=== PATIENT | female | born 1970 | race Caucasian/White ===

== ENCOUNTER 2022-05-11 11:51 | Outpatient (CLI) | payer OTHER | END 2022-05-11 11:52 | disposition home or self-care (01) | LOC: CSHMAMMO 11:51 | PROVIDERS: ATTEND Family Medicine | DX: Z12.31 Encounter for screening mammogram for malignant neoplasm of breast (principal) | CPT/HCPCS: 77063; 77067 ==

== ENCOUNTER 2022-05-11 12:28 | Outpatient (CLI) | payer OTHER ==
[2022-05-11] MEDS ORDERED: Gadobenate Dimeglumine 529 MG/1 ML (20ML VIAL) ONE (14:10)
== END 2022-05-11 12:29 | disposition home or self-care (01) ==
LOC: CSHMRI 12:28
PROVIDERS: ATTEND Family Medicine
DX: G62.9 Polyneuropathy, unspecified (principal); M50.122 Cervical disc disorder at C5-C6 level with radiculopathy; M50.323 Other cervical disc degeneration at C6-C7 level; J34.89 Other specified disorders of nose and nasal sinuses
CPT/HCPCS: 70553; 72156; A9577

== ENCOUNTER 2022-06-15 13:50 | Outpatient (CLI) | payer OTHER | END 2022-06-15 13:51 | disposition home or self-care (01) | LOC: CSHMRI 13:50 | PROVIDERS: ATTEND Neurological Surgery | DX: R20.2 Paresthesia of skin (principal); M48.061 Spinal stenosis, lumbar region without neurogenic claudication; M47.814 Spondylosis without myelopathy or radiculopathy, thoracic region; M51.24 Other intervertebral disc displacement, thoracic region | CPT/HCPCS: 72146; 72148 ==

== ENCOUNTER 2023-05-19 12:36 | Outpatient (CLI) | payer OTHER | END 2023-05-19 12:37 | disposition home or self-care (01) | LOC: CSHMAMMO 12:36 | PROVIDERS: ATTEND Family Medicine | DX: N60.11 Diffuse cystic mastopathy of right breast (principal); N64.89 Other specified disorders of breast | CPT/HCPCS: G0279 ==

== ENCOUNTER 2024-04-19 12:41 | Outpatient (CLI) | payer OTHER ==
[2024-04-19] MEDS ORDERED: Magnevist 469MG/ML 20 ML VIAL ONE ×2 (15:11)
== END 2024-04-19 12:42 | disposition home or self-care (01) ==
LOC: CSHRAD 12:41
PROVIDERS: ATTEND Family Medicine
DX: R25.3 Fasciculation (principal); J32.0 Chronic maxillary sinusitis; M50.922 Unspecified cervical disc disorder at C5-C6 level; M50.923 Unspecified cervical disc disorder at C6-C7 level; G95.89 Other specified diseases of spinal cord; M48.02 Spinal stenosis, cervical region; M51.9 Unspecified thoracic, thoracolumbar and lumbosacral intervertebral disc disorder
CPT/HCPCS: 70553; 72156; 76377

== ENCOUNTER 2024-05-20 11:10 | Outpatient (CLI) | payer OTHER | END 2024-05-20 11:11 | disposition home or self-care (01) | LOC: CSHMAMMO 11:10 | PROVIDERS: ATTEND Family Medicine | DX: Z12.31 Encounter for screening mammogram for malignant neoplasm of breast (principal) | CPT/HCPCS: 77063; 77067 ==

== ENCOUNTER 2025-07-10 09:48 | Outpatient (CLI) | payer OTHER | END 2025-07-10 09:49 | disposition home or self-care (01) | LOC: CSHCT 09:48 | PROVIDERS: ATTEND Internal Medicine Cardiovascular Disease | DX: J98.11 Atelectasis (principal) | CPT/HCPCS: 71250 ==